=== PATIENT | female | born 1990 | race Caucasian/White ===

== ENCOUNTER 2023-06-13 14:34 | Emergency (ER) | payer BC ==
[2023-06-13 15:02] VITALS: BP 114/64; PULSE 87; RESP 16; TEMP 98.6; BMI 29.6
== END 2023-06-13 15:15 | disposition home or self-care (01) ==
LOC: FER 14:34
DX: K59.00 Constipation, unspecified (principal); R10.31 Right lower quadrant pain; R10.32 Left lower quadrant pain; K59.9 Functional intestinal disorder, unspecified
CPT/HCPCS: 99282-25